=== PATIENT | male | born 1990 | race African-American/Black ===

== ENCOUNTER 2019-10-15 13:49 | Emergency (ER) | payer OTHER, SELFPAY ==
[2019-10-15 13:54] VITALS: BP 148/71; PULSE 71; RESP 20; TEMP 36.9; O2SAT 98
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
[2019-10-15] MEDS: SILVER SULFADIAZINE 1% CR 400 GM JAR (*BKC) 1 APPLIC TOPICAL (14:47)
== END 2019-10-15 14:51 | disposition home or self-care (01) ==
PROVIDERS: Emergency Provider Emergency Medicine
DX: T22.211A Burn of second degree of right forearm, initial encounter (principal); T23.261A Burn of second degree of back of right hand, initial encounter; T23.231A Burn of second degree of multiple right fingers (nail), not including thumb, initial encounter; T31.0 Burns involving less than 10% of body surface; Z86.14 Personal history of Methicillin resistant Staphylococcus aureus infection; F17.290 Nicotine dependence, other tobacco product, uncomplicated; X03.0XXA Exposure to flames in controlled fire, not in building or structure, initial encounter
CPT/HCPCS: 16020; 99283; A9270

== ENCOUNTER 2019-12-03 05:22 | Emergency (ER) | payer OTHER, SELFPAY ==
--- NOTE | ~2019-12-03 | CT_ITS ---
EXAMINATION: CT abdomen pelvis w con DATE: 12/03/2019 06:54 INDICATION: Low abdominal pain. TECHNIQUE: Computed tomography (CT) of the abdomen and pelvis was performed with 100 mL Omnipaque 350 intravenous contrast. Automated exposure control and iterative reconstruction technique were employe d. The dose-length product was 690.03 mGy-cm. COMPARISON: None. FINDINGS: The visualized portions of the lung bases demonstrate minimal atelectasis of the left. No p leural effusion. The heart size is normal. No pericardial effusion. The liver, gallbladder, spleen, p ancreas, adrenal glands, and kidneys are normal. There are no dilated loops of bowel. The appendix is normal. There are no pathologically enlarged lymph nodes. There is no free intraperitoneal fluid. Th ere is mild thoracolumbar spondylosis. IMPRESSION: 1. No etiology for the patient's symptoms. Reviewed, dictated and finalized at location A.
[2019-12-03 05:28] VITALS: BP 141/93; PULSE 81; RESP 20; TEMP 36.8; O2SAT 95
--- NOTE | 2019-12-03 05:44 | ED.NAVMDI ---
HPI - Nausea/Vomiting/Diarrhea General Chief complaint: Nausea/Vomiting/Diarrhea Stated complaint: vomiting, tingling in left toe Time Seen by Provider: 12/03/19 05:29 History of Present Illness HPI Narrative: Intermittent nausea and vomiting for the past week. He has now developed some mild abdominal soreness. No fever. He has never had these symptoms before. Additionally c/o numbness in the left big toe. Related Data Allergies Allergy/AdvReac Type Severity Reaction Status Date / Time Penicillins Allergy Unknown Verified 12/03/19 05:32 Review of Systems Review of Systems: All systems reviewed & are unremarkable except as noted in HPI and below Constitutional: Constitutional: Denies chills and Denies fever(s) ENT: Denies sore throat Cardiovascular: Cardiovascular: Denies chest pain Respiratory: Respiratory: Denies dyspnea Gastrointestinal: Gastrointestinal: Reports abdominal pain, Denies constipation, Denies diarrhea, Reports nausea and Reports vomiting Genitourinary: Genitourinary: Denies hematuria, Denies dysuria and Denies penile discharge Neurologic: Denies dizziness and Denies weakness Endocrine: Endocrine: Denies polydipsia and Denies polyuria PMFSH Past Medical History Medical History Abscess MRSA (methicillin resistant staph aureus) culture positive Social History Social History Smoking status: Current every day smoker Tobacco type: cigars Alcohol intake: current Substance use type: marijuana Gender identity (if verbalized by the patient): Male Exam Const: General: healthy appearing, no acute distress and alert Orientation/consciousness: patient oriented x3 HENMT: Head: normal to inspection Neck: Neck: normal visual inspection and no lymphadenopathy Chest: Chest palpation & inspection: no tenderness Resp: Effort & Inspection: normal respiratory effort Auscultation: clear to auscultation bilaterally, no rales, no rhonchi and no wheezes Cardio: Jugular venous distension: no JVD Rate: regular rate Rhythm: regular rhythm Heart sounds: no murmurs GI: Inspection: non-distended GI Palp: Yes Soft to palpation and No Tenderness to palpation present (GI) Skin: General skin exam: normal color Neuro: General: patient oriented x3 and moves all extremities Speech: normal speech Extrem: General: no edema Psych: Appearance: well kempt Affect: normal affect Course Vital Signs Vital signs: Vital Signs Temperature 36.8 C 12/03/19 05:28 Pulse Rate 81 12/03/19 05:28 Respiratory Rate 20 12/03/19 05:28 Blood Pressure 141/93 H 12/03/19 05:28 Pulse Oximetry 95 12/03/19 05:28 Temperature 36.8 C 12/03/19 05:28 Pulse Rate 57 L 12/03/19 07:20 Respiratory Rate 18 12/03/19 07:20 Blood Pressure 132/87 12/03/19 07:20 Pulse Oximetry 100 12/03/19 07:20 MDM - Nausea/Vomiting/Diarrhea MDM Narrative Medical decision making narrative: Urine concerning for infection. He strongly denies risk or symptoms of STD. I obtained CT due to the rarity of isolated UTI in young otherwise healthy males. CT negative. Will treat for UTI. Medical Records Attestation: I reviewed the patient's medical records. Lab Data Attestation: I reviewed the patient's lab results. Result diagrams: 12/03/19 05:39 12/03/19 05:39 Labs: Lab Results 12/03/19 12/03/19 12/03/19 Range/Units 05:39 05:39 05:53 WBC 9.2 (4.5-10.0) K/mm3 RBC 5.12 (4.6-6.20) M/mm3 Hgb 16.2 (14.0-18.0) g/dL Hct 44.2 (42.0-52.0) % MCV 86.3 (80-100) fl MCH 31.6 (26-34) pg MCHC 36.7 H (32-36) g/dl RDW 13.4 (11.5-14.5) % Plt Count 191 (150-375) k/mm3 MPV 10.3 (7.4-10.4) fl Immature Gran % (Auto) 0.2 (0-0.5) % Neut % (Auto) 51.6 (45.5-73.1) % Lymph % (Auto) 33.4 (18.3-44.2) % Barber % (Auto) 7.2 (2.6-8.5) %
[2019-12-03 05:47] LABS: Basophils Absolute Auto 0.1 K/mm3 (0.0-0.1); Basophils Percent Auto 0.5 % (0.2-1.2); Eosinophils Absolute Auto 0.7 K/mm3 (0-0.3); Eosinophils Percent Auto 7.1 % (0-4.4); Hematocrit 44.2 % (42.0-52.0); Hemoglobin 16.2 g/dL (14.0-18.0); Immature Granulocyte Absolute 0.02 K/mm3 (0.00-0.031); Immature Granulocyte Percent A 0.2 % (0-0.5); Lymphocytes Absolute Auto 3.07 K/mm3 (0.9-3.2); Lymphocytes Percent Auto 33.4 % (18.3-44.2); Mean Corpuscular HGB Conc 36.7 g/dl (32-36); Mean Corpuscular Hemoglobin 31.6 pg (26-34); Mean Corpuscular Volume 86.3 fl (80-100); Mean Platelet Volume 10.3 fl (7.4-10.4); Monocytes Absolute Auto 0.7 K/mm3 (0.1-0.6); Monocytes Percent Auto 7.2 % (2.6-8.5); Neutrophils Absolute Auto 4.7 K/mm3 (1.3-6.7); Neutrophils Percent Auto 51.6 % (45.5-73.1); Platelet Count Result 191 k/mm3 (150-375); Red Blood Count 5.12 M/mm3 (4.6-6.20); Red Cell Distribution Width 13.4 % (11.5-14.5); White Blood Count 9.2 K/mm3 (4.5-10.0)
[2019-12-03 05:56] VITALS: BP 141/93; PULSE 55; RESP 20; O2SAT 98
[2019-12-03] MEDS: SODIUM CHLORIDE 0.9% IV 1,000 ML 999 ML IV CONT (05:56)
[2019-12-03 05:57] LABS: Alanine Aminotransferase 24 U/L (4-50); Albumin Level 3.9 g/dL (3.5-5.1); Alkaline Phosphatase 64 U/L (38-126); Aspartate Amino Transferase 24 U/L (17-59); Bilirubin,Total 0.5 mg/dL (0.2-1.3); Blood Urea Nitrogen 11 mg/dL (9-20); Calcium 8.6 mg/dL (8.4-10.2); Carbon Dioxide 32 mmol/L (22-30); Chloride 105 mmol/L (98-107); Estimated Glomerular Filt Rate > 60; Glucose 99 mg/dL (75-110); Lipase 53 U/L (23-300); Potassium 3.5 mmol/L (3.4-5.0); Sodium 139 mmol/L (137-145)
[2019-12-03 06:06] LABS: Add Urine Microscopic? YES; Appearance Urine Cloudy (Clear); Bacteria Urine Trace /hpf; Bilirubin Urine Negative (Negative); Blood Urine Negative (Negative); Color Urine Yellow (Yellow); Glucose Urine UA Negative (Negative); Ketones Urine Negative (Negative); Leukocyte Esterase Ur 3+ LEU/UL (Negative); Mucus Urine Few /lpf; Nitrate Urine Negative (Negative); Protein Urine Negative (Negative); Specific Grav Ur 1.023 (1.001-1.035); Squamous Epithelial Cell Urine Rare /hpf (Few); WBC Urine >75 /hpf
[2019-12-03 07:05] VITALS: BP 132/87; PULSE 52; RESP 20; O2SAT 98
[2019-12-03 07:20] VITALS: BP 132/87; PULSE 57; RESP 18; O2SAT 100
[2019-12-03 07:30] LABS: Lactic Acid Reflex 0.8 mmol/L (0.7-2.1)
[2019-12-03 07:35] LABS: Beta-Hydroxybutyrate/Acetoacetate 0.17 mmol/L (0.02-0.27)
== END 2019-12-03 07:41 | disposition home or self-care (01) ==
PROVIDERS: Emergency Provider Emergency Medicine
DX: N39.0 Urinary tract infection, site not specified (principal); Z86.14 Personal history of Methicillin resistant Staphylococcus aureus infection; F17.290 Nicotine dependence, other tobacco product, uncomplicated
CPT/HCPCS: 36415; 74177; 80053; 81001; 82010; 83605; 83690; 85025; 87086; 96360; 99284; J7030; Q9967

== ENCOUNTER 2021-10-08 09:58 | Emergency (ER) | payer BC, SELFPAY ==
--- NOTE | ~2021-10-08 | CT_ITS ---
EXAMINATION: CT soft tissue neck w con EXAM DATE: 10/08/2021 11:40 INDICATION: Anterior neck abscess . Left-sided swelling for 3 days. History of MRSA. TECHNIQUE: Spiral CT of the neck was performed following intravenous injection of 75 mL Omnipaque 350 . Axial, coronal and sagittal images were reviewed. The dose-length product (DLP) for this examinat ion was 595.98 mGy-cm. The exposure was tailored according to patient size (auto mA exposure control ), and iterative reconstruction (ASIR) was used as additional dose reduction technique. There is no prior study for comparison. FINDINGS: There is skin thickening, edema left anterolateral aspect of the neck without underlying ab scess. The left external jugular vein is deep to this region and has some central low density (see ax ial image 78). Although this could be inflow artifact, external jugular vein superficial thrombophleb itis is not excludable; consider ultrasound. Internal jugular veins and carotid arteries enhance norm ally. The thyroid gland is unremarkable. The submandibular and parotid glands are symmetric. There is n o cervical lymphadenopathy. There are no masses identified. The superior mediastinum is unremarka ble. The airway is unremarkable. Parapharyngeal and pre-glottic fat planes are preserved. The o rbits are unremarkable. Visualized sinuses and mastoid air cells are well aerated. Lung apices ar e clear. There is cervical spondylosis. IMPRESSION: 1. Left anterior neck cellulitis and possible external jugular venous infectious superficial thrombo phlebitis deep to this; recommend ultrasound. 2. No neck abscess. Reviewed, dictated and finalized at location A. IMPRESSION: 1. Left anterior neck cellulitis and possible external jugular venous infectio us superficial thrombophlebitis deep to this; recommend ultrasound. 2. No neck abscess.
--- NOTE | ~2021-10-08 | US_ITS ---
EXAMINATION: US soft tissue head and neck DATE: 10/08/2021 13:25 INDICATION: Left neck cellulitis. Left external jugular vein thrombosis. TECHNIQUE: Multiple grayscale and Doppler ultrasound images of the neck were obtained. COMPARISON: Neck CT 10/08/2021 FINDINGS: The left internal and external jugular veins are patent. There is subcutaneous edema in lef t anterior neck. IMPRESSION: 1. Subcutaneous edema in left anterior neck. 2. Patent left internal jugular vein and external jugular vein. Reviewed, dictated and finalized at location B.
[2021-10-08 10:01] VITALS: BP 148/87; PULSE 90; RESP 18; TEMP 36.9; O2SAT 98
--- NOTE | 2021-10-08 10:39 | ED.SKABFB ---
HPI - Skin/Abscess/Foreign Bdy General Chief complaint: Skin/Abscess/Foreign Body Stated complaint: abcess on neck Time Seen by Provider: 10/08/21 10:07 Source: patient Mode of arrival: ambulatory Limitations: no limitations History of Present Illness HPI narrative: 30 y/o male presents to the ER today for abscess to left anterior neck. He says that it started 3 days ago. He says that it has gotten a lot bigger and is very tender. He squeezed some pus out of it this morning. He denies any problems with swallowing or breathing. No fever or chills. No nausea or vomiting. Denies any chronic health conditions. Related Data Allergies Allergy/AdvReac Type Severity Reaction Status Date / Time Penicillins Allergy Unknown Verified 10/08/21 10:35 Review of Systems Constitutional: Constitutional: Denies chills, Denies fever(s) and Denies weakness Eyes: Eyes: Reports no additional eye complaints ENT: Denies sore throat Cardiovascular: Cardiovascular: Denies chest pain Respiratory: Respiratory: Denies chest congestion, Denies dyspnea and Denies wheezing Gastrointestinal: Gastrointestinal: Denies diarrhea, Denies nausea and Denies vomiting Musculoskeletal: Musculoskeletal: Reports no additional musculoskeletal complaints Integumentary/Breasts: Skin/Breast: Reports as per HPI Neurologic: Denies dizziness, Denies headache(s) and Denies weakness Psychiatric: Psychiatric: Denies anxiety and Denies depression Endocrine: Endocrine: Reports no additional endocrine complaints Hematologic/Lymphatic: Hematologic/Lymphatic: Reports no additional hematologic/lymphatic complaints Allergic/Immunologic: Allergic/Immunologic: Reports no additional allergic/immunologic complaints [facility] Past Medical History Medical History (Updated 10/08/21 @ 14:27 by Kizzy Napier APRN) Abscess MRSA (methicillin resistant staph aureus) culture positive Social History Social History Smoking status: Current every day smoker Tobacco type: cigars Alcohol intake: current Substance use type: marijuana Gender identity (if verbalized by the patient): Male Exam Const: General: healthy appearing and no acute distress Orientation/consciousness: patient oriented x3 HENMT: Head: normal to inspection Mouth: Yes moist mucous membranes Eyes: Conjunctivae: conjunctivae normal Neck: Other: golf ball size abscess noted to left anterior neck, tender, pointing, fluctuant Chest: Chest palpation & inspection: normal inspection of the chest Resp: Effort & Inspection: normal respiratory effort Auscultation: clear to auscultation bilaterally Cardio: Rate: regular rate Rhythm: regular rhythm GI: GI Palp: Yes Soft to palpation, No Tenderness to palpation present (GI) and No Guarding due to palpation present (GI) Auscultation: normal bowel sounds Skin: General skin exam: normal color Neuro: General: patient oriented x3 and moves all extremities Extrem: General: normal to inspection Psych: Mental Status: mental status grossly normal Course Vital Signs Vital signs: Vital Signs Temperature 36.9 C 10/08/21 10:01 Pulse Rate 90 10/08/21 10:01 Respiratory Rate 18 10/08/21 10:01 Blood Pressure 148/87 H 10/08/21 10:01 Pulse Oximetry 98 10/08/21 10:01 Temperature 36.9 C 10/08/21 10:01 Pulse Rate 65 10/08/21 15:07 Respiratory Rate 18 10/08/21 15:07 Blood Pressure 154/87 H 10/08/21 15:07 Pulse Oximetry 98 10/08/21 15:07 MDM - Skin/Abscess/Foreign Bdy Differential Diagnosis Differential diagnosis: Likely abscess of skin or subcutaneous tissue and cellulitis Lab Data Attestation: I reviewed the patient's lab results. Result diagrams: 10/08/21 10:52 10/08/21 10:52 Labs: Lab Results 10/08/21 10/08/21 Range/Units 10:52 10:52 WBC 8.3 (4.5-10.0) K/mm3 RBC 5.23 (4.6-6.20) M/mm3 Hgb 16.2 (14.0-18.0) g/dL
[2021-10-08 11:01] LABS: Basophils Percent Auto 0.4 % (0.2-1.2); Eosinophils Absolute Auto 0.2 K/mm3 (0-0.3); Eosinophils Percent Auto 2.3 % (0-4.4); Hematocrit 45.9 % (42.0-52.0); Hemoglobin 16.2 g/dL (14.0-18.0); Immature Granulocyte Absolute 0.03 K/mm3 (0.00-0.031); Immature Granulocyte Percent A 0.4 % (0-0.5); Lymphocytes Absolute Auto 2.45 K/mm3 (0.9-3.2); Lymphocytes Percent Auto 29.4 % (18.3-44.2); Mean Corpuscular HGB Conc 35.3 g/dl (32-36); Mean Corpuscular Volume 87.8 fl (80-100); Mean Platelet Volume 10.2 fl (7.4-10.4); Monocytes Absolute Auto 0.5 K/mm3 (0.1-0.6); Neutrophils Absolute Auto 5.1 K/mm3 (1.3-6.7); Neutrophils Percent Auto 61.5 % (45.5-73.1); Platelet Count Result 194 k/mm3 (150-375); Red Blood Count 5.23 M/mm3 (4.6-6.20); Red Cell Distribution Width 13.6 % (11.5-14.5); White Blood Count 8.3 K/mm3 (4.5-10.0)
[2021-10-08] MEDS: HYDROcodone/acetaminophen (*CRX) 5-325 MG TABLET 1 TAB PO (11:02)
[2021-10-08 11:13] LABS: Anion Gap 3 mmol/L (8-16); Blood Urea Nitrogen 5 mg/dL (9-20); Calcium 8.5 mg/dL (8.4-10.2); Carbon Dioxide 31 mmol/L (22-30); Chloride 106 mmol/L (98-107); Estimated CRCL calculation 111 ml/min; Estimated Glomerular Filt Rate > 60; Glucose 131 mg/dL (65-110); Potassium 4.1 mmol/L (3.4-5.0); Sodium 140 mmol/L (137-145)
--- NOTE | 2021-10-08 11:41 | PC.NURSE ---
Pt in CT at this time.
[2021-10-08 12:08] VITALS: BP 142/88; PULSE 74; RESP 18; O2SAT 99
--- NOTE | 2021-10-08 13:16 | PC.NURSE ---
Ultrasound at bedside at this time.
[2021-10-08 15:07] VITALS: BP 154/87; PULSE 65; RESP 18; O2SAT 98
== END 2021-10-08 15:23 | disposition home or self-care (01) ==
PROVIDERS: Emergency Provider Nurse Practitioner Family
DX: L03.221 Cellulitis of neck (principal); Z86.14 Personal history of Methicillin resistant Staphylococcus aureus infection; F17.290 Nicotine dependence, other tobacco product, uncomplicated
CPT/HCPCS: 36415; 70491; 76536; 80048; 85025; 96365; 99284; A9270; J0696; Q9967

== ENCOUNTER 2023-10-15 19:58 | Emergency (ER) | payer BC, MEDICAID, SELFPAY ==
--- NOTE | ~2023-10-15 | XR_ITS ---
EXAM: XR wrist LT min 3V DATE: 10/15/2023 20:22 HISTORY: left wrist injury, pain . COMPARISON: None available. FINDINGS: Normal mineralization. No fracture or dislocation. No lytic or blastic lesion. Joint space s are maintained. No erosion or periosteal change. Soft tissues within normal limits. IMPRESSION: No acute osseous finding in the left wrist. Reviewed, dictated and finalized at location K.
[2023-10-15 20:05] VITALS: BP 149/76; PULSE 93; RESP 18; TEMP 36.4; O2SAT 96
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
== END 2023-10-15 21:15 | disposition home or self-care (01) ==
PROVIDERS: Emergency Provider Physician Assistant
DX: S63.502A Unspecified sprain of left wrist, initial encounter (principal); F17.290 Nicotine dependence, other tobacco product, uncomplicated; Z86.14 Personal history of Methicillin resistant Staphylococcus aureus infection; W20.8XXA Other cause of strike by thrown, projected or falling object, initial encounter
CPT/HCPCS: 73110; 99283

== ENCOUNTER 2023-10-29 21:33 | Emergency (ER) | payer BC, MEDICAID, SELFPAY ==
[2023-10-29 21:57] VITALS: BP 139/86; PULSE 76; RESP 17; TEMP 36.2; O2SAT 97
--- NOTE | 2023-10-30 00:15 | PC.NURSE ---
Patient and his SO came to desk to state we're just going to leave, he is okay. We will come back tomorrow or go to urgent care. We will come back if we need to. Patient and his SO verbalized understanding of risks of leaving before being seen by a provider and benefits of staying to be evaluated. patient and his SO ambulated out of the ED with a steady gait with belongings in hand. Patient marked as left without being seen, triaged.
== END 2023-10-30 00:27 | disposition left against medical advice (07) ==
LOC: ANHED 10-30 00:26
DX: R21 Rash and other nonspecific skin eruption (principal)
CPT/HCPCS: 99199

== ENCOUNTER 2024-03-07 20:12 | Emergency (ER) | payer OTHER, SELFPAY ==
--- NOTE | ~2024-03-07 | XR_ITS ---
XR wrist RT min 3V Ordering provider: Dannie Gonzalez MD History: . injury, pain, swelling . Comparison: None. FINDINGS: BONES: No acute fracture or dislocation. No definite scaphoid fracture. JOINT SPACES: Normal. SOFT TISSUES: Normal. IMPRESSION: No acute osseous abnormality right wrist. Reviewed, dictated and finalized at location A.
[2024-03-07 20:13] VITALS: BP 150/82; PULSE 66; RESP 14; TEMP 36.4; O2SAT 98
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
== END 2024-03-07 21:25 | disposition home or self-care (01) ==
PROVIDERS: Emergency Provider Emergency Medicine
DX: S63.501A Unspecified sprain of right wrist, initial encounter (principal); X58.XXXA Exposure to other specified factors, initial encounter; F17.210 Nicotine dependence, cigarettes, uncomplicated
CPT/HCPCS: 73110; 99283

== ENCOUNTER 2024-04-22 16:50 | Emergency (ER) | payer OTHER, SELFPAY ==
[2024-04-22 16:51] VITALS: BP 152/98; PULSE 83; RESP 14; TEMP 36.2; O2SAT 98
== END 2024-04-22 18:17 | disposition left against medical advice (07) ==
DX: K12.2 Cellulitis and abscess of mouth (principal)
CPT/HCPCS: 99199

== ENCOUNTER 2024-09-03 09:24 | Emergency (ER) | payer OTHER, SELFPAY ==
--- NOTE | ~2024-09-03 | XR_ITS ---
XR shoulder LT min 2V Ordering provider: Dannie Gonzalez MD History: . shoulder pain, INJURY X 1 MONTH AGO LROM . Comparison: None. FINDINGS: BONES: No acute fracture or dislocation. JOINT SPACES: The acromioclavicular joint is normal. The glenohumeral joint is normal. SOFT TISSUES: Normal. IMPRESSION: No acute osseous abnormality left shoulder. Reviewed, dictated and finalized at location A.
[2024-09-03 09:28] VITALS: BP 134/97; PULSE 71; RESP 14; TEMP 36.4; O2SAT 99
--- NOTE | 2024-09-03 13:14 | ED_ITS ---
HPI - General Adult General Chief complaint: Extremity Injury, Upper Stated complaint: left shoulder pain Time Seen by Provider: 09/03/24 12:02 History of Present Illness HPI narrative: 33-year-old male presented to the emergency department for evaluation for left shoulder pain. Patient reports a few weeks ago he had been using a sledgehammer and has had increased shoulder tightness and pain with active range of motion of the left shoulder since that time. Patient has been taking ibuprofen for pain control. Related Data Allergies Allergy/AdvReac Type Severity Reaction Status Date / Time Penicillins Allergy Unknown Verified 09/03/24 12:15 Review of Systems Review of Systems: All systems reviewed & are unremarkable except as noted in HPI and below PMFSH Past Medical History Medical History (Updated 09/03/24 @ 13:16 by Dannie Gonzalez MD) MRSA (methicillin resistant staph aureus) culture positive Abscess Social History Social History Smoking status: Current every day smoker Tobacco type: cigars Alcohol intake: current Substance use type: marijuana Gender identity (if verbalized by the patient): Male Exam Narrative: APPEARANCE: Well appearing, no pain, no distress, well-nourished. HEAD: normocephalic, atraumatic. EYES: PERRLA/EOMI, conjunctivae clear. NOSE: Normal no drainage EARS:TMS clear with good light reflex. THROAT: Pharynx clear, no exudate. NECK: Supple. No adenopathy, no masses. RESPIRATORY: Airway patent, respirations nonlabored. Clear to auscultation bilaterally, no rales, rhonchi, wheezing. CARDIOVASCULAR: Regular rate and rhythm without murmurs rubs or gallops. ABDOMINAL: Soft, nontender, nondistended, normal bowel sounds MUSCULOSKELETAL: Limited range of motion of the left shoulder secondary to pain, neurovascularly intact NEURO: Alert. Cranial nerves II through XII intact. Grossly intact SKIN: Warm, dry. Normal Color Course Vital Signs Vital signs: Vital Signs Temperature 97.5 F L 09/03/24 09:28 Pulse Rate 71 09/03/24 09:28 Respiratory Rate 14 09/03/24 09:28 Blood Pressure 134/97 H 09/03/24 09:28 Pulse Oximetry 99 09/03/24 09:28 Oxygen Delivery Room Air 09/03/24 09:28 Temperature 97.5 F L 09/03/24 09:28 Pulse Rate 71 09/03/24 09:28 Respiratory Rate 14 09/03/24 09:28 Blood Pressure 134/97 H 09/03/24 09:28 Pulse Oximetry 99 09/03/24 09:28 Oxygen Delivery Room Air 09/03/24 09:28 Medical Decision Making MDM Narrative Medical decision making narrative: 33-year-old male presents emergency department for evaluation for left shoulder pain. X-ray was negative for acute fracture dislocation. Patient was provided medications for pain control. Patient's exam is consistent with a rotator cuff strain. Patient was advised to use a sling for comfort and was advised on arm exercise to help with range of motion without increasing the strain on the rotator cuff. Patient will be provided follow-up with Orthopedics and with a primary care physician. Patient is being provided Flexeril for muscle spasm. All questions concerns were addressed. Differential Diagnosis Differential Diagnosis: Shoulder dislocation, shoulder fracture, rotator cuff injury, shoulder strain Vital Signs Vital Signs: Vital Signs Temperature 97.5 F L 09/03/24 09:28 Pulse Rate 71 09/03/24 09:28 Respiratory Rate 14 09/03/24 09:28 Blood Pressure 134/97 H 09/03/24 09:28 Pulse Oximetry 99 09/03/24 09:28 Oxygen Delivery Room Air 09/03/24 09:28 Temperature 97.5 F L 09/03/24 09:28 Pulse Rate 71 09/03/24 09:28 Respiratory Rate 14 09/03/24 09:28 Blood Pressure 134/97 H 09/03/24 09:28 Pulse Oximetry 99 09/03/24 09:28 Oxygen Delivery Room Air 09/03/24 09:28 Imaging Data Radiologist's impression: Impressions Shoulder X-Ray 09/03/24 12:35 IMPRESSION: No acute osseous abnormality left shoulder. Discharge Plan Discharge Clinical Impression: Left shoulder strain Patient Disposition: Home, Self-Care Condition: Stable Instructions: Antibiotic Form, Rotator Cuff Injury (ED), How to Use a Sling (ED), Rotator Cuff Injury Exercises (DC) Additional Instructions: Ibuprofen for pain control. Flexeril for muscle spasm. Shoulder sling as direc santa. Have close follow-up with your primary care physician and with Orthopedics. If you have any worsening symptoms then please call or return to the emergency department. Patient Language: Lithuanian Prescriptions: New naproxen [Naprosyn] 500 mg tablet 500 mg PO BID 7 Days Qty: 14 0RF cyclobenzaprine 10 mg tablet 10 mg PO BID PRN (Reason: muscle spasm) Qty: 14 0RF Discontinued naproxen [Naprosyn] 500 mg tablet 500 mg PO BID PRN (Reason: pain) Qty: 20 0RF No Action clindamycin HCl 300 mg capsule 300 mg PO Q8H 10 Days Qty: 30 0RF Follow-up/Referrals: Simone Alvarenga MD [Physician] - Eladio Romero MD [Physician] - UNKNOWN,DOCTOR [Primary Care Provider] -
[2024-09-03] MEDS: CYCLOBENZAPRINE HCL 10 MG TABLET PO (13:29)
[2024-09-03] MEDS: KETOROLAC 30 MG/ML VIAL (*BKC) IM (13:29)
[2024-09-03] MEDS: HYDROcodone/acetaminophen (*CRX) 5-325 MG TABLET 1 TAB PO (13:29)
== END 2024-09-03 13:35 | disposition home or self-care (01) ==
PROVIDERS: Emergency Provider Emergency Medicine
DX: S46.912A Strain of unspecified muscle, fascia and tendon at shoulder and upper arm level, left arm, initial encounter (principal); F17.290 Nicotine dependence, other tobacco product, uncomplicated; X50.3XXA Overexertion from repetitive movements, initial encounter
CPT/HCPCS: 73030; 96372; 99283; A4565; A9270; J1885